=== PATIENT | male | born 1975 | race Two or more races ===

== ENCOUNTER 2019-12-14 09:47 | Outpatient (CLI) | payer OTHER | END 2019-12-14 09:52 | disposition home or self-care (01) | LOC: LAB 09:47 | DX: Z00.00 Encounter for general adult medical examination without abnormal findings (principal) ==

== ENCOUNTER 2019-12-24 17:35 | Emergency (ER) | payer OTHER ==
[~2019-12-24] VITALS: Ht 185.4 cm; Wt 104.3 kg
== END 2019-12-24 20:47 | disposition home or self-care (01) ==
LOC: ER 17:35
DX: I16.0 Hypertensive urgency (principal); I10 Essential (primary) hypertension

== ENCOUNTER → 2020-03-22 10:45 | Outpatient (CLI) | payer OTHER | END | disposition home or self-care (01) | LOC: LAB 10:45 | PROVIDERS: ATTEND Internal Medicine | DX: M79.641 Pain in right hand (principal); I11.9 Hypertensive heart disease without heart failure; K70.0 Alcoholic fatty liver; R74.8 Abnormal levels of other serum enzymes; Z12.11 Encounter for screening for malignant neoplasm of colon; Z13.820 Encounter for screening for osteoporosis; Z13.220 Encounter for screening for lipoid disorders; Z13.1 Encounter for screening for diabetes mellitus; Z12.5 Encounter for screening for malignant neoplasm of prostate ==

== ENCOUNTER 2020-04-10 10:14 | Outpatient (CLI) | payer OTHER | END 2020-04-10 10:21 | disposition home or self-care (01) | LOC: NUCLEAR 10:14 | PROVIDERS: ATTEND Internal Medicine | DX: M81.0 Age-related osteoporosis without current pathological fracture (principal) ==

== ENCOUNTER 2021-08-29 10:06 | Outpatient (CLI) | payer OTHER | END 2021-08-29 10:17 | disposition home or self-care (01) | LOC: TOM 10:06 | PROVIDERS: ATTEND Internal Medicine Pulmonary Disease | DX: J84.9 Interstitial pulmonary disease, unspecified (principal); U07.1 COVID-19; R06.00 Dyspnea, unspecified ==